=== PATIENT | male | born 1945 | race Hispanic/Latino ===

== ENCOUNTER 2021-05-11 05:24 | Inpatient (IN) | payer MEDICARE, OTHER ==
[2021-05-05 10:13] LABS: BASOPHILS # (AUTO) 0.1 (0.0-0.1); BASOPHILS % 0.8 % (0.0-1.0); EOSINOPHILS # (AUTO) 0.5 (0.0-0.4); EOSINOPHILS % 6.3 % (0.0-6.0); HEMATOCRIT 42.8 % (38.2-49.6); HEMOGLOBIN 14.2 g/dL (14.0-18.0); LYMPHOCYTES % 26.1 % (18.0-39.1); MEAN CORPUSCULAR HEMOGLOBIN 31.7 pg (28-32); MEAN CORPUSCULAR HGB CONC 33.2 g/dL (31-35); MEAN CORPUSCULAR VOLUME 95.5 fL (81-99); MONOCYTES # (AUTO) 0.6 (0.2-0.8); MONOCYTES % 7.2 % (4.4-11.3); NEUTROPHILS # (AUTO) 4.5 (2.1-6.9); NEUTROPHILS % 59.2 % (38.7-80.0); PLATELET COUNT 207 x10e3/uL (140-360); RED BLOOD COUNT 4.48 x10e6/uL (4.3-5.7); RED CELL DISTRIBUTION WIDTH 13.2 % (11.7-14.4)
[2021-05-05 10:32] LABS: CALCIUM 9.6 mg/dL (8.4-10.2); CREATININE, SERUM 1.18 mg/dL (0.72-1.25)
[~2021-05-11] VITALS: Ht 180.3 cm; Wt 86.2 kg
[~2021-05-11 05:24] MED LIST: ASPIRIN81 MG PO; CARVEDILOL12.5 MG PO; CLOPIDOGREL75 MG PO; CRESTOR10 MG PO; FAMOTIDINE20 MG PO; FINASTERIDE5 MG PO; FLOMAX0.4 MG PO; FLONASE ALLERG9.9 ML INH; MULTI-VITAMIN1 EACH PO; TRELEGY ELLIPT1 EACH INH
[2021-05-11] MEDS ORDERED: GENTAMICIN 80MG/NS 100 ML 200 ML IV ONE (05:37)
[2021-05-11] MEDS ORDERED: CEFTRIAXONE 1 GM VIAL ONE (05:37)
[2021-05-11] MEDS ORDERED: SODIUM CHLORIDE 0.9% 50ML 50 ML ONE (05:37)
[2021-05-11] MEDS ORDERED: SODIUM CHLORIDE 0.9% 1000ML 1,000 ML ONE (05:38)
[2021-05-11] MEDS ORDERED: IOPAMIDOL 300MG/ML 50ML INFUS..BTL IV ONE (06:38)
[2021-05-11] MEDS ORDERED: B&O 60MG R/S 60 MG SUPP PR ONE (06:38)
[2021-05-11] MEDS ORDERED: B&O 60MG R/S 60 MG SUPP PR PRN (07:30)
[2021-05-11] MEDS ORDERED: DIPHENHYDRAMINE HCL 25 MG CAP PO PRN (07:30)
[2021-05-11] MEDS ORDERED: ACETAMINOPHEN/CODEINE 300MG - 30MG TAB PO PRN (07:30)
[2021-05-11] MEDS ORDERED: D5.45%NS/KCL 20MEQ 1,000 ML IV SCH (07:30)
[2021-05-11] MEDS ORDERED: ONDANSETRON HCL INJ 2MG/ML 2ML 2 MG/ML VIAL IV PRN (07:30)
[2021-05-11 09:35] LABS: BASOPHILS # (AUTO) 0.1 (0.0-0.1); BASOPHILS % 0.8 % (0.0-1.0); EOSINOPHILS # (AUTO) 0.4 (0.0-0.4); HEMATOCRIT 41.2 % (38.2-49.6); HEMOGLOBIN 13.3 g/dL (14.0-18.0); LYMPHOCYTES # (AUTO) 2.1 (1.0-3.2); LYMPHOCYTES % 32.9 % (18.0-39.1); MEAN CORPUSCULAR HEMOGLOBIN 31.5 pg (28-32); MEAN CORPUSCULAR HGB CONC 32.3 g/dL (31-35); MEAN CORPUSCULAR VOLUME 97.6 fL (81-99); MONOCYTES # (AUTO) 0.4 (0.2-0.8); MONOCYTES % 6.1 % (4.4-11.3); NEUTROPHILS # (AUTO) 3.3 (2.1-6.9); NEUTROPHILS % 52.9 % (38.7-80.0); PLATELET COUNT 181 x10e3/uL (140-360); RED BLOOD COUNT 4.22 x10e6/uL (4.3-5.7); RED CELL DISTRIBUTION WIDTH 13.3 % (11.7-14.4)
[2021-05-11] MEDS ORDERED: MORPHINE SULFATE INJ 2 MG/ML SYR ONE (09:37)
[2021-05-11 10:05] LABS: ANION GAP 10.3 mmol/L (8-16); CALCIUM 8.9 mg/dL (8.4-10.2); CREATININE, SERUM 1.06 mg/dL (0.72-1.25); POTASSIUM 4.3 mmol/L (3.5-5.1)
[2021-05-11 11:31] VITALS: BP 166/82
[2021-05-11] MEDS ORDERED: LIDOCAINE HCL 2% LOCAL INJ 5 ML SDV VIAL INJ ONE (11:45)
[2021-05-11] MEDS ORDERED: EPHEDRINE SULFATE INJ 50 MG/ML VIAL ONE (11:45)
[2021-05-11] MEDS ORDERED: PROPOFOL IV EMULSION 10 MG/ML 20 ML VIAL ONE (11:45)
[2021-05-11 12:00] VITALS: BP 166/82
[2021-05-11] MEDS ORDERED: MIDAZOLAM HCL 2 MG/2 ML VIAL ONE (12:36)
[2021-05-11] MEDS ORDERED: FENTANYL CITRATE/PF 100MCG/2 ML INJ ONE (12:36)
[2021-05-11 15:46] VITALS: BP 137/69
[2021-05-11] MEDS: DOCUSATE SODIUM 100 MG CAP PO SCH ×2 (17:00→18:22)
[2021-05-11] MEDS ORDERED: NITROGLYCERIN0.4 MG SL (18:14)
[2021-05-11] MEDS ORDERED: NITROGLYCERIN 0.4 MG SUBL SL PRN (18:45)
[2021-05-11] MEDS ORDERED: FLUTICASONE PROPIONATE NASAL SPRAY NS SCH (18:45)
[2021-05-11] MEDS: SODIUM CHLORIDE 0.45% 1,000 ML IV SCH ×2 (18:45→20:54)
[2021-05-11 20:00] VITALS: BP 150/77
[2021-05-11 20:25] VITALS: BP 150/77
[2021-05-11] MEDS: FINASTERIDE 5 MG TAB PO SCH (20:45)
[2021-05-11] MEDS: TAMSULOSIN HCL 0.4 MG CAP PO SCH (20:45)
[2021-05-11] MEDS: SIMVASTATIN 40 MG TAB PO SCH (20:45)
[2021-05-12] VITALS: BP 136/72
[2021-05-12 04:00] VITALS: BP 123/65
[2021-05-12 05:00] LABS: BASOPHILS % 0.4 % (0.0-1.0); EOSINOPHILS # (AUTO) 0.4 (0.0-0.4); EOSINOPHILS % 4.1 % (0.0-6.0); HEMATOCRIT 40.8 % (38.2-49.6); HEMOGLOBIN 13.5 g/dL (14.0-18.0); LYMPHOCYTES # (AUTO) 2.1 (1.0-3.2); LYMPHOCYTES % 22.2 % (18.0-39.1); MEAN CORPUSCULAR HEMOGLOBIN 31.7 pg (28-32); MEAN CORPUSCULAR HGB CONC 33.1 g/dL (31-35); MEAN CORPUSCULAR VOLUME 95.8 fL (81-99); MONOCYTES # (AUTO) 0.7 (0.2-0.8); MONOCYTES % 7.4 % (4.4-11.3); NEUTROPHILS # (AUTO) 6.2 (2.1-6.9); NEUTROPHILS % 65.5 % (38.7-80.0); PLATELET COUNT 192 x10e3/uL (140-360); RED BLOOD COUNT 4.26 x10e6/uL (4.3-5.7); RED CELL DISTRIBUTION WIDTH 13.2 % (11.7-14.4)
[2021-05-12 05:28] LABS: ANION GAP 11.1 mmol/L (8-16); CREATININE, SERUM 1.09 mg/dL (0.72-1.25); POTASSIUM 4.1 mmol/L (3.5-5.1)
[2021-05-12] MEDS: SODIUM CHLORIDE 0.45% 1,000 ML IV SCH (07:24)
[2021-05-12 07:55] VITALS: BP 139/77
[2021-05-12 08:25] VITALS: BP 139/77
[2021-05-12] MEDS: CEFTRIAXONE 1 GM in SODIUM CHLORIDE 0.9% 50ML 50 ML IV SCH (08:52)
[2021-05-12] MEDS: DOCUSATE SODIUM 100 MG CAP PO SCH ×2 (08:52→16:11)
[2021-05-12] MEDS: NON-FORMULARY MEDICATION (Fluticasone/Umeclidin/Vilanter (Trelegy Ellipta 100-62.5-25) 1 I INH SCH (08:52)
[2021-05-12] MEDS: MULTIVITAMINS/MINERALS TAB PO SCH (08:52)
[2021-05-12] MEDS: CARVEDILOL 12.5 MG TAB PO SCH ×2 (08:53→16:11)
[2021-05-12] MEDS: FAMOTIDINE 20 MG TAB PO SCH (08:54)
[2021-05-12 13:35] VITALS: BP 115/77
[2021-05-12] MEDS ORDERED: DIPHENHYDRAMINE HCL 25 MG CAP PO PRN (15:30)
[2021-05-12] MEDS ORDERED: ACETAMINOPHEN 325 MG TAB PO PRN (15:30)
[2021-05-12] MEDS ORDERED: POTASSIUM CHLORIDE 20 MEQ TAB CR PO PRN (15:30)
[2021-05-12] MEDS ORDERED: ONDANSETRON HCL INJ 2MG/ML 2ML 2 MG/ML VIAL IV PRN (15:30)
[2021-05-12] MEDS ORDERED: DOCUSATE SODIUM 100 MG CAP PO PRN (15:30)
[2021-05-12] MEDS ORDERED: DEXTROSE 50% SYRINGE 50 ML IV PRN (15:30)
[2021-05-12] MEDS ORDERED: ALBUTEROL/IPRATROPIUM 3 ML NEB NEB PRN (15:30)
[2021-05-12] MEDS ORDERED: HYDRALAZINE HCL 20 MG/ML VIAL IV PRN (15:30)
[2021-05-12] MEDS ORDERED: LIDOCAINE 4% PATCH TP PRN (15:30)
[2021-05-12 16:34] VITALS: BP 115/68
[2021-05-12] MEDS ORDERED: MELATONIN 5 MG TABLET PO PRN (21:00)
[2021-05-12] MEDS: FINASTERIDE 5 MG TAB PO SCH (22:02)
[2021-05-12] MEDS: TAMSULOSIN HCL 0.4 MG CAP PO SCH (22:02)
[2021-05-12] MEDS: SIMVASTATIN 40 MG TAB PO SCH (22:02)
[2021-05-13 04:00] VITALS: BP 127/74
[2021-05-13 04:55] LABS: BASOPHILS % 0.4 % (0.0-1.0); EOSINOPHILS # (AUTO) 0.4 (0.0-0.4); EOSINOPHILS % 5.3 % (0.0-6.0); HEMATOCRIT 38.9 % (38.2-49.6); HEMOGLOBIN 12.8 g/dL (14.0-18.0); LYMPHOCYTES # (AUTO) 2.6 (1.0-3.2); LYMPHOCYTES % 32.7 % (18.0-39.1); MEAN CORPUSCULAR HEMOGLOBIN 31.6 pg (28-32); MEAN CORPUSCULAR HGB CONC 32.9 g/dL (31-35); MONOCYTES # (AUTO) 0.7 (0.2-0.8); MONOCYTES % 9.2 % (4.4-11.3); NEUTROPHILS # (AUTO) 4.2 (2.1-6.9); PLATELET COUNT 168 x10e3/uL (140-360); RED BLOOD COUNT 4.05 x10e6/uL (4.3-5.7); RED CELL DISTRIBUTION WIDTH 13.2 % (11.7-14.4)
[2021-05-13 05:13] LABS: ANION GAP 11.9 mmol/L (8-16); CALCIUM 9.2 mg/dL (8.4-10.2); CREATININE, SERUM 1.1 mg/dL (0.72-1.25); POTASSIUM 3.9 mmol/L (3.5-5.1)
[2021-05-13 05:47] LABS: MAGNESIUM 1.7 MG/DL (1.3-2.1)
[2021-05-13] MEDS ORDERED: PANTOPRAZOLE SOD 40 MG TABEC PO SCH (07:30)
[2021-05-13 08:32] VITALS: BP 138/87
[2021-05-13 10:00] VITALS: BP 138/87
[2021-05-13] MEDS: DOCUSATE SODIUM 100 MG CAP PO SCH (11:33)
[2021-05-13] MEDS: CEFTRIAXONE 1 GM in SODIUM CHLORIDE 0.9% 50ML 50 ML IV SCH (11:33)
[2021-05-13] MEDS: NON-FORMULARY MEDICATION (Fluticasone/Umeclidin/Vilanter (Trelegy Ellipta 100-62.5-25) 1 I INH SCH (11:33)
[2021-05-13] MEDS: CARVEDILOL 12.5 MG TAB PO SCH (11:34)
[2021-05-13] MEDS: MULTIVITAMINS/MINERALS TAB PO SCH (11:34)
[2021-05-13] MEDS: FAMOTIDINE 20 MG TAB PO SCH (11:35)
[2021-05-13] MEDS: SODIUM CHLORIDE 0.45% 1,000 ML IV SCH (11:38)
[2021-05-13 13:33] VITALS: BP 168/72
[2021-05-13 16:31] VITALS: BP 151/76
== END 2021-05-13 17:10 | disposition home or self-care (01) | DRG 713 ==
LOC: OR 05:24 → PACU V 07:19 → MED/SURG 10:55
PROVIDERS: ADMIT Internal Medicine; ATTEND Internal Medicine
PROC: 0T788ZZ Dilation of Bilateral Ureters, Via Natural or Artificial Opening Endoscopic (ICD-10-PCS; 2021-05-11)
PROC: BT141ZZ Fluoroscopy of Kidneys, Ureters and Bladder using Low Osmolar Contrast (ICD-10-PCS; 2021-05-11)
PROC: 0T7D8ZZ Dilation of Urethra, Via Natural or Artificial Opening Endoscopic (ICD-10-PCS; 2021-05-11)
PROC: 0VT08ZZ Resection of Prostate, Via Natural or Artificial Opening Endoscopic (ICD-10-PCS; principal; 2021-05-11 07:00)
DX: N40.1 Benign prostatic hyperplasia with lower urinary tract symptoms (principal); N13.8 Other obstructive and reflux uropathy; N35.812 Other bulbous urethral stricture, male; R39.14 Feeling of incomplete bladder emptying; I10 Essential (primary) hypertension; I25.10 Atherosclerotic heart disease of native coronary artery without angina pectoris; Z95.5 Presence of coronary angioplasty implant and graft; Z87.891 Personal history of nicotine dependence; J44.9 Chronic obstructive pulmonary disease, unspecified; E78.00 Pure hypercholesterolemia, unspecified; G89.29 Other chronic pain; E66.9 Obesity, unspecified; Z68.26 Body mass index [BMI] 26.0-26.9, adult; Z86.16 Personal history of COVID-19; E78.2 Mixed hyperlipidemia; K21.9 Gastro-esophageal reflux disease without esophagitis; M15.9 Polyosteoarthritis, unspecified
CPT/HCPCS: 36415; 71046; 74420; 80048; 83735; 84100; 85025; C1758; J0696; J1580; J2001; J2250; J2270; J3010; J7030

== ENCOUNTER 2021-08-07 13:37 | Emergency (ER) | payer MEDICARE, OTHER ==
[~2021-08-07] VITALS: Ht 180.3 cm; Wt 86.2 kg
[~2021-08-07 13:37] MED LIST changes: +NITROGLYCERIN0.4 MG SL
[2021-08-07] MEDS ORDERED: ACETAMINOPHEN500 MG PO (14:35)
[2021-08-07] MEDS ORDERED: ULTRAM 50MG50 MG PO (14:35)
== END 2021-08-07 15:31 | disposition home or self-care (01) ==
LOC: FSED 14:10
DX: S30.1XXA Contusion of abdominal wall, initial encounter (principal); W18.09XA Striking against other object with subsequent fall, initial encounter; Y93.01 Activity, walking, marching and hiking; I10 Essential (primary) hypertension; E78.5 Hyperlipidemia, unspecified; J44.9 Chronic obstructive pulmonary disease, unspecified
CPT/HCPCS: 74176; 99283